=== PATIENT | female | born 1950 | race Caucasian/White ===

== ENCOUNTER 2019-05-01 18:46 | Emergency (ER) | payer MEDICARE, BC ==
[2019-05-01] MEDS ORDERED: Silver Nitrate Applicator Each TOP ONE (19:22)
[2019-05-01] MEDS ORDERED: Bacitracin Oint 1 GM U/D Packet TOP ONE (19:22)
[2019-05-01 19:23] VITALS: BP 161/84; PULSE 55
--- NOTE | 2019-05-01 19:26 | EDM.PDOC ---
ED HPI GENERAL MEDICAL PROBLEM - General Chief Complaint: Laceration Stated Complaint: LEFT FIRST FINGER LACERATION Time Seen by Provider: 05/01/19 19:20 Source of Information: Reports: Patient, RN Notes Reviewed History Limitations: Reports: No Limitations - History of Present Illness INITIAL COMMENTS - FREE TEXT/NARRATIVE: 69-year-old female presents emergency department today with a laceration to digit #2 on her left hand she injured herself while cutting vegetables she has a laceration on the distal tip no functional complaints right finger Pain Score (Numeric/FACES): 2 - Related Data Allergies Allergy/AdvReac Type Severity Reaction Status Date / Time No Known Allergies Allergy Verified 05/01/19 19:10 Home Meds: Home Meds Cholecalciferol (Vitamin D3) [Vitamin D3] 5,000 unit PO DAILY 12/04/12 [History] Metoprolol Succinate [Toprol XL] 75 mg PO DAILY 12/04/12 [History] Simvastatin 40 mg PO DAILY 12/04/12 [History] Albuterol [Proventil Neb Soln] 2.5 mg .XX QID PRN 05/01/19 [History] Losartan Potassium 1 tab PO DAILY 05/01/19 [History] Rizatriptan Benzoate [Rizatriptan] 1 tab PO BID PRN 05/01/19 [History] predniSONE 30 tab PO DAILY 05/01/19 [History] Past Medical History Cardiovascular History: Reports: High Cholesterol, Hypertension Respiratory History: Reports: Bronchitis, Recurrent Neurological History: Reports: Migraines Endocrine/Metabolic History: Reports: Obesity/BMI 30+ Social & Family History - Tobacco Use Smoking Status *Q: Never Smoker - Caffeine Use Caffeine Use: Reports: Coffee - Recreational Drug Use Recreational Drug Use: No ED ROS GENERAL - Review of Systems Review Of Systems: See Below Musculoskeletal: Reports: No Symptoms Skin: Reports: Wound Neurological: Reports: No Symptoms ED EXAM, SKIN/RASH Exam: See Below Text/Narrative:: Examination of the left hand the distal tip the top layer of the dermis has been shaved off or avulsed it is approximately 1 cm by half a centimeter radial pulses +2 sensation is intact Course - Vital Signs Last Recorded V/S: Last Vital Signs Temp 96.1 F L 05/01/19 19:15 Pulse 55 L 05/01/19 19:15 Resp 18 05/01/19 19:15 BP 161/84 H 05/01/19 19:15 Pulse Ox 96 05/01/19 19:15 - Orders/Labs/Meds Meds: Medications Discontinued Medications Generic Name Dose Route Start Last Admin Trade Name Gary PRN Reason Stop Dose Admin Bacitracin 1 dose 05/01/19 19:22 Bacitracin Oint 1 Gm TOP 05/01/19 19:23 ONETIME ONE Silver Nitrate 1 each 05/01/19 19:22 Silver Nitrate TOP 05/01/19 19:23 ONETIME ONE Departure - Departure Time of Disposition: 19:32 Disposition: Home, Self-Care 01 Condition: Good, Fair Clinical Impression: Laceration of left index finger Qualifiers: Encounter type: initial encounter Damage to nail status: without damage Foreign body presence: without foreign body Qualified Code(s): S61.211A - Laceration without foreign body of left index finger without damage to nail, initial encounter - Discharge Information Instructions: Laceration Care, Adult Referrals: Geoffrey Lagos MD [Primary Care Provider] - Forms: ED Department Discharge Additional Instructions: Try and keep the wound dry for 24 to 48 hours follow wound care instruction sheet follow-up with primary care as needed, Sepsis Event Note - Evaluation Sepsis Screening Result: No Definite Risk - Focused Exam Vital Signs: Vital Signs Temp Pulse Resp BP Pulse Ox 05/01/19 19:15 96.1 F L 55 L 18 161/84 H 96 Date Exam was Performed: 05/01/19 Time Exam was Performed: 19:32 - Assessment/Plan Plan: Assessment Acuity = acute Site and laterality = superficial laceration digit #2 left hand Etiology = secondary to trauma Manifestations = none Location of injury = Home Lab values = none Plan Tetanus is up-to-date bleeding was controlled with silver nitrate followed by bacitracin and a dressing discharged home follow-up primary care as needed
== END 2019-05-01 19:53 | disposition home or self-care (01) ==
LOC: JP.ED 18:46
DX: S61.211A Laceration without foreign body of left index finger without damage to nail, initial encounter (principal); E78.00 Pure hypercholesterolemia, unspecified; I10 Essential (primary) hypertension; E66.9 Obesity, unspecified; Z79.899 Other long term (current) drug therapy; Z68.42 Body mass index [BMI] 45.0-49.9, adult
CPT/HCPCS: 12001; 99282

== ENCOUNTER 2021-02-01 10:54 | Emergency (ER) | payer MEDICARE, BC ==
[2021-02-01 12:15] VITALS: BP 141/85; PULSE 63
--- NOTE | 2021-02-01 14:33 | EDM.PDOC ---
ED HPI GENERAL MEDICAL PROBLEM - General Chief Complaint: Cardiovascular Problem Stated Complaint: BP ISSUES Time Seen by Provider: 02/01/21 12:00 Source of Information: Reports: Patient History Limitations: Reports: No Limitations - History of Present Illness INITIAL COMMENTS - FREE TEXT/NARRATIVE: pt developed some rapid rhythms in the 114 range. She also had chest pain on t he left that lasted while her rate was up. She also checked her bp and it was very elevated. It was as high as 197. Onset: Gradual, Other (lasted for several hours. ) Duration: Hour(s): Location: Reports: Generalized Associated Symptoms: Reports: Weakness - Related Data Allergies Allergy/AdvReac Type Severity Reaction Status Date / Time No Known Allergies Allergy Verified 02/01/21 12:33 Home Meds: Home Meds Cholecalciferol (Vitamin D3) [Vitamin D3] 5,000 unit PO DAILY 12/04/12 [History] Metoprolol Succinate [Toprol XL] 75 mg PO DAILY 12/04/12 [History] Simvastatin 40 mg PO DAILY 12/04/12 [History] Losartan Potassium 1 tab PO DAILY 05/01/19 [History] Rizatriptan Benzoate [Rizatriptan] 1 tab PO BID PRN 05/01/19 [History] Past Medical History Cardiovascular History: Reports: High Cholesterol, Hypertension Respiratory History: Reports: Bronchitis, Recurrent Neurological History: Reports: Migraines Endocrine/Metabolic History: Reports: Obesity/BMI 30+ - Past Surgical History HEENT Surgical History: Reports: Other (See Below) Other HEENT Surgeries/Procedures: septal deviation repair. uvula surgically removed GI Surgical History: Reports: Cholecystectomy Female Surgical History: Reports: Hysterectomy Social & Family History - Tobacco Use Tobacco Use Status *Q: Former Tobacco User Years of Tobacco use: 20 Packs/Tins Daily: 0.5 Used Tobacco, but Quit: No - Caffeine Use Caffeine Use: Reports: Coffee Other Caffeine Use: 1/2 cup coffee in am - Alcohol Use Days Per Week of Alcohol Use: 3 Number of Drinks Per Day: 2 Total Drinks Per Week: 6 - Recreational Drug Use Recreational Drug Use: No ED ROS GENERAL - Review of Systems Review Of Systems: See Below Constitutional: Reports: No Symptoms HEENT: Reports: No Symptoms Respiratory: Reports: No Symptoms Cardiovascular: Reports: Palpitations, Other (pt had some left sided chest pain. ) Endocrine: Reports: No Symptoms GI/Abdominal: Reports: No Symptoms : Reports: No Symptoms Musculoskeletal: Reports: No Symptoms Skin: Reports: No Symptoms ED EXAM, GENERAL - Physical Exam Exam: See Below Free Text/Narrative:: pt arrived with a history of elevated bp, left sided chest pain, not severe. and feeling like her heart is racing. Exam Limited By: No Limitations General Appearance: Alert, No Apparent Distress, Anxious, Other (pupils are equal and reactive. ) Ears: Normal TMs Nose: Normal Inspection Throat/Mouth: Normal Inspection Head: Atraumatic Neck: Normal Inspection Respiratory/Chest: No Respiratory Distress Cardiovascular: Regular Rate, Rhythm GI/Abdominal: Soft, Non-Tender (Female) Exam: Deferred Rectal (Female) Exam: Deferred Back Exam: Normal Inspection Extremities: Normal Inspection Neurological: Alert, Oriented, Normal Cognition Course - Vital Signs Last Recorded V/S: Last Vital Signs Temp 36.4 C 02/01/21 12:39 Pulse 63 02/01/21 12:39 Resp 14 02/01/21 12:39 BP 141/85 H 02/01/21 12:39 Pulse Ox 97 02/01/21 12:39 - Orders/Labs/Meds Orders: Active Orders 24 hr Category Date Time Status EKG 12 Lead [EK] Routine Ther 02/01/21 13:25 Ordered Labs: Laboratory Tests 02/01/21 02/01/21 02/01/21 Range/Units 13:30 13:30 13:30 WBC 7.1 (4.5-11.0) K/uL RBC 4.74 (3.30-5.50) M/uL Hgb 14.8 (12.0-15.0) g/dL Hct 44.7 (36.0-48.0) % MCV 94 (80-98) fL MCH 31 (27-31) pg MCHC 33 (32-36) % Plt Count 265 (150-400) K/uL Neut % (Auto) 67.2 H (36-66) % Lymph % (Auto) 24.3 (24-44) % [place] % (Auto) 6.5 H (2-6) % Eos % (Auto) 1.7 L (2-4) % Baso % (Auto) 0.3 (0-1) % Sodium 140 (140-148) mmol/L Potassium 4.5 (3.6-5.2) mmol/L Chloride 104 (100-108) mmol/L Carbon Dioxide 29 (21-32) mmol/L Anion Gap 7.5 (5.0-14.0) mmol/L BUN 14 (7-18) mg/dL Creatinine 0.9 (0.6-1.0) mg/dL Est Cr Clr Drug Dosing 49.43 mL/min Estimated GFR (MDRD) > 60 (>60) Glucose 100 (74-106) mg/dL Calcium 8.7 (8.5-10.1) mg/dL Total Bilirubin 1.4 H (0.2-1.0) mg/dL AST 18 (15-37) U/L ALT 30 (12-78) U/L Alkaline Phosphatase 65 (46-116) U/L Troponin I High Sens 6.8 (<=60.3) pg/mL Total Protein 6.8 (6.4-8.2) g/dL Albumin 3.6 (3.4-5.0) g/dL Globulin 3.2 (2.3-3.5) g/dL Albumin/Globulin Ratio 1.1 L (1.2-2.2) - Re-Assessments/Exams Free Text/Narrative Re-Assessment/Exam: 02/01/21 14:39 as the pt waited her bp came down nicely. Her ekg was normal lab work looked good. She was reassured. Departure - Departure Time of Disposition: 14:31 Disposition: Home, Self-Care 01 Condition: Fair Clinical Impression: Hypertension Referrals: PCP,None [Primary Care Provider] - Forms: ED Department Discharge Care Plan Goals: push fluids, change metoprol to 75 mg tab 1/2 tab qam and 1/2 tab qpm. See regular provider in the next week. Sepsis Event Note (ED) - Evaluation Sepsis Screening Result: No Definite Risk - Focused Exam Vital Signs: Vital Signs Temp Pulse Resp BP Pulse Ox 02/01/21 12:39 36.4 C 63 14 141/85 H 97 02/01/21 12:14 36.4 C 63 14 141/85 H 97 02/01/21 11:33 158/80 H - My Orders Last 24 Hours: My Active Orders 02/01/21 13:25 EKG 12 Lead [EK] Routine - Assessment/Plan Last 24 Hours: My Active Orders 02/01/21 13:25 EKG 12 Lead [EK] Routine
== END 2021-02-01 14:47 | disposition home or self-care (01) ==
LOC: JP.ED 10:54
DX: I11.0 Hypertensive heart disease with heart failure (principal); E78.00 Pure hypercholesterolemia, unspecified; E66.9 Obesity, unspecified; Z68.20 Body mass index [BMI] 20.0-20.9, adult; Z79.899 Other long term (current) drug therapy; Z87.891 Personal history of nicotine dependence
CPT/HCPCS: 36415; 80053; 84484; 85025; 93005; 99285-25

== ENCOUNTER → 2021-08-14 | Day surgery (SDC) | payer MEDICARE, BC ==
[~2021-08-14] MED LIST: Lactated Ringers 1,000 ML IV SCH; Midazolam 1 MG/ML 2 ML SDV ONE; Propofol 200 MG/20 ML SDV ONE; fentaNYL 100 MCG/2 ML SDV ONE
[2021-08-14 11:26] VITALS: PULSE 53
[2021-08-14 12:03] VITALS: BP 149/74
== END ==
LOC: JP.SDS 09:31
PROVIDERS: ATTEND Family Medicine
DX: Z12.11 Encounter for screening for malignant neoplasm of colon (principal); I10 Essential (primary) hypertension; E78.5 Hyperlipidemia, unspecified; K21.9 Gastro-esophageal reflux disease without esophagitis; G47.33 Obstructive sleep apnea (adult) (pediatric); E66.9 Obesity, unspecified; Z91.048 Other nonmedicinal substance allergy status; Z68.41 Body mass index [BMI] 40.0-44.9, adult; Z90.711 Acquired absence of uterus with remaining cervical stump; Z98.890 Other specified postprocedural states; Z86.010 Personal history of colon polyps; Z80.0 Family history of malignant neoplasm of digestive organs; Z87.891 Personal history of nicotine dependence
CPT/HCPCS: J2250; J2704; J3010; J7120

== ENCOUNTER 2022-05-25 19:52 | Emergency (ER) | payer MEDICARE, BC ==
[2022-05-25] MEDS: Diltiazem 25 MG/5 ML SDV IVPUSH ONE (20:44)
[2022-05-25] MEDS: Sodium Chloride 0.9% 10 ML Syringe FLUSH PRN (20:45)
[2022-05-25] MEDS: Metoprolol Succinate 50 MG Tab.ER PO ONE (21:56)
[2022-05-25 21:57] VITALS: BP 129/71; PULSE 89
[2022-05-25] MEDS: Rivaroxaban 10 MG Tab PO ONE (21:57)
== END 2022-05-25 22:56 | disposition home or self-care (01) ==
LOC: JP.ED 19:52
DX: I48.92 Unspecified atrial flutter (principal); I10 Essential (primary) hypertension; E78.5 Hyperlipidemia, unspecified; E66.9 Obesity, unspecified; E78.00 Pure hypercholesterolemia, unspecified; Z87.891 Personal history of nicotine dependence; Z79.899 Other long term (current) drug therapy; Z79.01 Long term (current) use of anticoagulants; Z68.41 Body mass index [BMI] 40.0-44.9, adult
CPT/HCPCS: 36415; 71045; 71045-26; 80048; 83735; 85025; 85379; 85610; 85730; 93005; 93010; 96374; 99284; 99285-25; A9270-GY; J3490

== ENCOUNTER 2022-06-20 19:59 | Inpatient (IN) | payer MEDICARE, BC ==
[2022-06-20] MEDS ORDERED: Diltiazem 25 MG/5 ML SDV IVPUSH ONE (20:03)
[2022-06-20] MEDS ORDERED: Sodium Chloride 0.9% 10 ML Syringe FLUSH PRN (20:03)
[2022-06-20] MEDS ORDERED: Ibutilide 1 MG/10 ML Vial IVPUSH ONE ×2 (20:06→20:56)
[2022-06-20] MEDS ORDERED: Sodium Chloride 0.9% 1,000 ML IV SCH (20:15)
[2022-06-20 20:42] LABS: ESTIMATED GFR 60 mL/min (>60); TROPONIN I HIGH SENSITIVITY 7.8 pg/mL (<=60.3)
[2022-06-20] MEDS ORDERED: Diltiazem 100 MG in Sodium Chloride 0.9% 100 ML IV SCH (22:30)
[2022-06-20] MEDS ORDERED: Apixaban 5 MG Tab PO ONE (22:52)
[2022-06-20] MEDS ORDERED: Diltiazem IR 30 MG Tab PO SCH (23:00)
[2022-06-21] MEDS ORDERED: Acetaminophen 325 MG Tab PO PRN (00:55)
[2022-06-21] MEDS ORDERED: Potassium Chloride 20 MEQ Tab.ER PO ONE (00:55)
[2022-06-21] MEDS ORDERED: Morphine 2 MG/ML SYRINGE IVPUSH PRN (00:55)
[2022-06-21] MEDS ORDERED: oxyCODONE 5 MG Tab PO PRN (00:55)
[2022-06-21] MEDS ORDERED: Ondansetron 4 MG Tab.DIS PO PRN (00:55)
[2022-06-21] MEDS ORDERED: Sodium Chloride 0.9% 1,000 ML IV SCH (00:55)
[2022-06-21] MEDS ORDERED: Apixaban 5 MG Tab ONE (01:38)
[2022-06-21] MEDS ORDERED: Apixaban 2.5 MG Tab ONE (01:46)
[2022-06-21] MEDS: Diltiazem IR 30 MG Tab PO SCH ×2 (01:50→09:07)
[2022-06-21] MEDS ORDERED: Non-Formulary Medication 1 Each (Simvastatin [Simvastatin] 20 MG Tablet) PO SCH (09:00)
[2022-06-21] MEDS ORDERED: Magnesium Oxide 400 MG Tab PO SCH (09:00)
[2022-06-21] MEDS: Apixaban 5 MG Tab PO SCH ×3 (09:07→22:09)
[2022-06-21] MEDS: Losartan 50 MG Tab PO SCH ×2 (09:07→13:38)
[2022-06-21] MEDS: Cholecalciferol (Vitamin D3) 25 MCG Tab PO SCH ×2 (09:08→13:39)
[2022-06-21] MEDS: Metoprolol Succinate 25 MG Tab.ER PO SCH ×2 (09:08→13:38)
[2022-06-21] MEDS: atorvaSTATin 10 MG Tab PO SCH ×2 (09:08→13:39)
[2022-06-21] MEDS ORDERED: Magnesium Sulfate/Water 2 GM in Premix Bag 1 BAG IV SCH (10:00)
[2022-06-21] MEDS: Sotalol 80 MG Tab PO SCH ×2 (13:46→22:11)
[2022-06-22] MEDS ORDERED: Metoprolol Succinate 25 MG Tab.ER PO SCH (09:00)
[2022-06-22] MEDS: Sotalol 80 MG Tab PO SCH ×2 (09:23→21:55)
[2022-06-22] MEDS: Apixaban 5 MG Tab PO SCH ×3 (09:27→21:55)
[2022-06-22] MEDS: Losartan 50 MG Tab PO SCH (09:30)
[2022-06-22] MEDS: atorvaSTATin 10 MG Tab PO SCH (09:30)
[2022-06-22] MEDS: Cholecalciferol (Vitamin D3) 25 MCG Tab PO SCH (09:31)
[2022-06-23] MEDS: Losartan 50 MG Tab PO SCH (09:01)
[2022-06-23] MEDS: Sotalol 80 MG Tab PO SCH (09:01)
[2022-06-23] MEDS: Cholecalciferol (Vitamin D3) 25 MCG Tab PO SCH (09:02)
[2022-06-23] MEDS: atorvaSTATin 10 MG Tab PO SCH (09:02)
[2022-06-23] MEDS: Apixaban 5 MG Tab PO SCH ×2 (09:04→11:14)
[2022-06-23 12:23] VITALS: BP 134/79; PULSE 58
== END 2022-06-23 14:50 | disposition home or self-care (01) | DRG 310 ==
LOC: JP.ED 19:59 → JP.MS 23:24 → OBSVTOIN 06-21 12:00
PROVIDERS: ADMIT Hospitalist; ATTEND Hospitalist
DX: I48.0 Paroxysmal atrial fibrillation (principal); E87.6 Hypokalemia; E78.00 Pure hypercholesterolemia, unspecified; I10 Essential (primary) hypertension; E66.9 Obesity, unspecified; M19.90 Unspecified osteoarthritis, unspecified site; Z20.822 Contact with and (suspected) exposure to COVID-19; I48.92 Unspecified atrial flutter; G47.33 Obstructive sleep apnea (adult) (pediatric); G43.909 Migraine, unspecified, not intractable, without status migrainosus; Z98.890 Other specified postprocedural states; Z90.49 Acquired absence of other specified parts of digestive tract; Z90.710 Acquired absence of both cervix and uterus; Z79.01 Long term (current) use of anticoagulants; Z86.010 Personal history of colon polyps; Z90.721 Acquired absence of ovaries, unilateral; Z68.30 Body mass index [BMI] 30.0-30.9, adult; Z88.8 Allergy status to other drugs, medicaments and biological substances; Z79.899 Other long term (current) drug therapy; H54.7 Unspecified visual loss; I44.0 Atrioventricular block, first degree
CPT/HCPCS: 36415; 80048; 80053; 81001; 83735; 84443; 84484; 85025; 93005; 93010; 96361; 96374; 96376; 99222; 99232; 99238; 99285; 99285-25; A9270-GY; G0378; J1742; J3490; J7030; U0002

== ENCOUNTER 2022-07-02 11:45 | Emergency (ER) | payer MEDICARE, BC ==
[2022-07-02 11:54] VITALS: BP 164/95; PULSE 83
== END 2022-07-02 12:33 | disposition home or self-care (01) ==
LOC: JP.ED 11:45
DX: I48.0 Paroxysmal atrial fibrillation (principal); I10 Essential (primary) hypertension; E78.00 Pure hypercholesterolemia, unspecified; M19.90 Unspecified osteoarthritis, unspecified site; E66.9 Obesity, unspecified; Z68.41 Body mass index [BMI] 40.0-44.9, adult; Z79.01 Long term (current) use of anticoagulants; Z91.048 Other nonmedicinal substance allergy status; Z79.899 Other long term (current) drug therapy
CPT/HCPCS: 99284

== ENCOUNTER 2022-07-19 04:11 | Emergency (ER) | payer MEDICARE, BC ==
[2022-07-19] MEDS ORDERED: Sotalol 80 MG Tab PO ONE (04:32)
[2022-07-19 06:21] VITALS: BP 140/85; PULSE 84
== END 2022-07-19 05:55 | disposition home or self-care (01) ==
LOC: JP.ED 04:11
DX: I48.3 Typical atrial flutter (principal); G47.33 Obstructive sleep apnea (adult) (pediatric); I48.91 Unspecified atrial fibrillation; E78.00 Pure hypercholesterolemia, unspecified; I10 Essential (primary) hypertension; E66.9 Obesity, unspecified; Z91.048 Other nonmedicinal substance allergy status; Z79.01 Long term (current) use of anticoagulants; Z79.899 Other long term (current) drug therapy; Z68.39 Body mass index [BMI] 39.0-39.9, adult
CPT/HCPCS: 93005; 99284; A9270

== ENCOUNTER 2022-09-27 15:11 | Emergency (ER) | payer MEDICARE, BC ==
[2022-09-27 16:12] VITALS: PULSE 52
[2022-09-27] MEDS ORDERED: Sodium Chloride 0.9% 10 ML Syringe FLUSH PRN (16:15)
[2022-09-27] MEDS ORDERED: Sodium Chloride 0.9% 1,000 ML IV ONE (16:15)
[2022-09-27] MEDS ORDERED: diphenhydrAMINE 50 MG/ML SDV IVPUSH ONE (16:16)
[2022-09-27] MEDS ORDERED: Metoclopramide 10 MG/2 ML SDV IVPUSH ONE (16:16)
[2022-09-27] MEDS ORDERED: Ketorolac 15 MG/ML SDV IVPUSH ONE (16:16)
[2022-09-27 16:26] LABS: BASOPHILS ABSOLUTE AUTO 0.04 K/uL (0.00-0.10); BASOPHILS PERCENT AUTO 0.6 % (0.1-1.3); EOSINOPHILS ABSOLUTE AUTO 0.12 K/uL (0.00-0.40); EOSINOPHILS PERCENT AUTO 1.7 % (0.0-5.4); HEMATOCRIT 38.2 % (34.3-46.0); HEMOGLOBIN 12.3 g/dL (11.2-15.5); IMMATURE GRAN PERCENT AUTO 0.3 % (0.0-0.7); LYMPHOCYTES ABSOLUTE AUTO 2.06 K/uL (0.8-3.3); LYMPHOCYTES PERCENT AUTO 28.5 % (11.4-47.7); MEAN CORPUSCULAR HEMOGLOBIN 30.8 pg (31.6-35.5); MEAN CORPUSCULAR HGB CONC 32.2 g/dL (31.6-35.5); MEAN CORPUSCULAR VOLUME 95.5 fL (81.4-99.0); MONOCYTES ABSOLUTE AUTO 0.53 K/uL (0.20-0.90); MONOCYTES PERCENT AUTO 7.3 % (3.3-12.6); NEUTROPHILS ABSOLUTE AUTO 4.46 K/uL (1.0-7.6); NEUTROPHILS PERCENT AUTO 61.6 % (40.0-78.1); PLATELET COUNT,PLT 190 K/uL (130-375); WHITE BLOOD CELL COUNT,WBC 7.2 K/uL (3.2-11.0)
[2022-09-27 16:27] LABS: IMMATURE GRAN ABSOLUTE AUTO 0.02 K/uL (0.00-0.23)
[2022-09-27 16:41] LABS: ANION GAP 8.8 mmol/L (5.0-14.0); BLOOD UREA NITROGEN,BUN 17 mg/dL (7-18); CALCIUM 8.7 mg/dL (8.5-10.1); CARBON DIOXIDE,CO2 30 mmol/L (21-32); CHLORIDE,CL 109 mmol/L (100-108); CREATININE 0.9 mg/dL (0.6-1.0); ESTIMATED GFR 68 mL/min (>60); GLUCOSE RANDOM 90 mg/dL (74-106); POTASSIUM,K 4.8 mmol/L (3.6-5.2); SODIUM,NA 143 mmol/L (140-148)
[2022-09-27 17:12] VITALS: BP 141/77
== END 2022-09-27 17:56 | disposition home or self-care (01) ==
LOC: JP.ED 15:11
DX: G43.909 Migraine, unspecified, not intractable, without status migrainosus (principal); I48.91 Unspecified atrial fibrillation; E78.00 Pure hypercholesterolemia, unspecified; I10 Essential (primary) hypertension; E66.9 Obesity, unspecified; Z79.01 Long term (current) use of anticoagulants; Z79.899 Other long term (current) drug therapy; Z91.048 Other nonmedicinal substance allergy status
CPT/HCPCS: 36415; 80048; 85025; 96361; 96374; 96375; 99283; 99283-25; J1200; J1885; J2765; J3490; J7030

== ENCOUNTER 2023-10-14 01:08 | Emergency (ER) | payer MEDICARE, BC ==
[2023-10-14] MEDS: Ketorolac 30 MG/ML SDV IM ONE (01:56)
[2023-10-14 04:43] VITALS: BP 164/64; PULSE 55
== END 2023-10-14 03:55 | disposition home or self-care (01) ==
LOC: JP.ED 01:08
DX: R10.9 Unspecified abdominal pain (principal); I10 Essential (primary) hypertension; I48.91 Unspecified atrial fibrillation; E78.00 Pure hypercholesterolemia, unspecified; E66.9 Obesity, unspecified; Z79.899 Other long term (current) drug therapy; Z79.01 Long term (current) use of anticoagulants; Z91.048 Other nonmedicinal substance allergy status; Z68.36 Body mass index [BMI] 36.0-36.9, adult
CPT/HCPCS: 74176; 96372; 99284; J1885

== ENCOUNTER 2023-10-15 07:25 | Emergency (ER) | payer MEDICARE, BC ==
[2023-10-15] MEDS ORDERED: Naloxone 0.4 MG/ML SDV IVPUSH PRN (07:33)
[2023-10-15 07:41] LABS: BASOPHILS ABSOLUTE AUTO 0.04 K/uL (0.00-0.10); BASOPHILS PERCENT AUTO 0.5 % (0.1-1.3); EOSINOPHILS ABSOLUTE AUTO 0.17 K/uL (0.00-0.40); EOSINOPHILS PERCENT AUTO 2.2 % (0.0-5.4); HEMATOCRIT 35.3 % (34.3-46.0); HEMOGLOBIN 12.1 g/dL (11.2-15.5); IMMATURE GRAN ABSOLUTE AUTO 0.03 K/uL (0.00-0.23); IMMATURE GRAN PERCENT AUTO 0.4 % (0.0-0.7); LYMPHOCYTES PERCENT AUTO 31.4 % (11.4-47.7); MEAN CORPUSCULAR HEMOGLOBIN 31.5 pg (31.6-35.5); MEAN CORPUSCULAR HGB CONC 34.3 g/dL (31.6-35.5); MEAN CORPUSCULAR VOLUME 91.9 fL (81.4-99.0); MONOCYTES ABSOLUTE AUTO 0.63 K/uL (0.20-0.90); MONOCYTES PERCENT AUTO 8.2 % (3.3-12.6); NEUTROPHILS ABSOLUTE AUTO 4.37 K/uL (1.0-7.6); NEUTROPHILS PERCENT AUTO 57.3 % (40.0-78.1); PLATELET COUNT,PLT 218 K/uL (130-375); RED BLOOD CELL COUNT 3.84 M/uL (3.77-5.24); WHITE BLOOD CELL COUNT,WBC 7.6 K/uL (3.2-11.0)
[2023-10-15] MEDS: Sodium Chloride 0.9% 1,000 ML IV SCH (07:51)
[2023-10-15] MEDS: Ondansetron 4 MG/2 ML SDV IVPUSH ONE (07:53)
[2023-10-15] MEDS: HYDROmorphone 0.5 MG/0.5 ML Syringe IVPUSH ONE ×2 (07:53→08:24)
[2023-10-15 07:56] LABS: ANION GAP 8.5 mmol/L (5.0-14.0); CALCIUM 8.5 mg/dL (8.5-10.1); CREATININE 1.2 mg/dL (0.6-1.0); EST CRCL DRUG DOSING (CG) 35.05 mL/min; POTASSIUM,K 4.5 mmol/L (3.6-5.2)
[2023-10-15 08:36] VITALS: BP 152/84; PULSE 60
[2023-10-15 08:39] LABS: BILIRUBIN,URINE NEGATIVE (NEGATIVE); COLOR,URINE YELLOW (YELLOW); GLUCOSE,URINE NEGATIVE (NEGATIVE); KETONES,URINE NEGATIVE (NEGATIVE); LEUKOCYTE ESTERASE,URINE SMALL (NEGATIVE); NITRITE,URINE NEGATIVE (NEGATIVE); OCCULT BLOOD,URINE TRACE-INTACT (NEGATIVE); PROTEIN,URINE NEGATIVE (NEGATIVE); UROBILINOGEN,URINE 0.2 EU/dL (0.2-1.0)
[2023-10-15 08:44] LABS: AMORPHOUS SEDIMENT,URINE NOT SEEN; APPEARANCE,URINE SLIGHTLY CLOUDY (CLEAR); BACTERIA,URINE FEW; EPITHELIAL CELLS,URINE RARE; MUCUS,URINE NOT SEEN; RBC,URINE 0-5 (0-5)
[2023-10-15] MEDS: oxyCODONE 5 MG Tab PO ONE (11:53)
== END 2023-10-15 13:52 | disposition home or self-care (01) ==
LOC: JP.ED 07:25
DX: N36.8 Other specified disorders of urethra (principal); I10 Essential (primary) hypertension; E78.00 Pure hypercholesterolemia, unspecified; E66.9 Obesity, unspecified; Z79.899 Other long term (current) drug therapy; Z91.048 Other nonmedicinal substance allergy status; Z90.49 Acquired absence of other specified parts of digestive tract; Z68.36 Body mass index [BMI] 36.0-36.9, adult
CPT/HCPCS: 36415; 76705; 80048; 81001; 85025; 96361; 96374; 96375; 96376; 99284; A9270; J1170; J2405; J7030

== ENCOUNTER 2023-12-25 11:23 | Emergency (ER) | payer MEDICARE, BC ==
[2023-12-25 12:04] VITALS: BP 162/55; PULSE 69
[2023-12-25] MEDS ORDERED: Naloxone 0.4 MG/ML SDV IVPUSH PRN (12:21)
[2023-12-25 12:29] LABS: BASOPHILS ABSOLUTE AUTO 0.03 K/uL (0.00-0.10); BASOPHILS PERCENT AUTO 0.4 % (0.1-1.3); EOSINOPHILS ABSOLUTE AUTO 0.21 K/uL (0.00-0.40); EOSINOPHILS PERCENT AUTO 2.7 % (0.0-5.4); HEMATOCRIT 38.9 % (34.3-46.0); HEMOGLOBIN 13.1 g/dL (11.2-15.5); IMMATURE GRAN ABSOLUTE AUTO 0.03 K/uL (0.00-0.23); IMMATURE GRAN PERCENT AUTO 0.4 % (0.0-0.7); LYMPHOCYTES ABSOLUTE AUTO 1.37 K/uL (0.8-3.3); LYMPHOCYTES PERCENT AUTO 17.9 % (11.4-47.7); MEAN CORPUSCULAR HGB CONC 33.7 g/dL (31.6-35.5); MEAN CORPUSCULAR VOLUME 94.9 fL (81.4-99.0); MONOCYTES ABSOLUTE AUTO 0.55 K/uL (0.20-0.90); MONOCYTES PERCENT AUTO 7.2 % (3.3-12.6); NEUTROPHILS ABSOLUTE AUTO 5.47 K/uL (1.0-7.6); NEUTROPHILS PERCENT AUTO 71.4 % (40.0-78.1); PLATELET COUNT,PLT 220 K/uL (130-375); WHITE BLOOD CELL COUNT,WBC 7.7 K/uL (3.2-11.0)
[2023-12-25 12:34] LABS: APPEARANCE,URINE SLIGHTLY CLOUDY (CLEAR); BILIRUBIN,URINE NEGATIVE (NEGATIVE); COLOR,URINE YELLOW (YELLOW); GLUCOSE,URINE NEGATIVE (NEGATIVE); KETONES,URINE NEGATIVE (NEGATIVE); LEUKOCYTE ESTERASE,URINE SMALL (NEGATIVE); NITRITE,URINE NEGATIVE (NEGATIVE); OCCULT BLOOD,URINE SMALL (NEGATIVE); PH,URINE 5.5 (5.0-8.0); PROTEIN,URINE NEGATIVE (NEGATIVE); UROBILINOGEN,URINE 0.2 EU/dL (0.2-1.0)
[2023-12-25] MEDS: HYDROmorphone 0.5 MG/0.5 ML Syringe IVPUSH PRN (12:39)
[2023-12-25 12:40] LABS: AMORPHOUS SEDIMENT,URINE RARE; BACTERIA,URINE FEW; EPITHELIAL CELLS,URINE FEW; MUCUS,URINE NOT SEEN; RBC,URINE 0-5 (0-5); WBC,URINE >100 (0-5)
[2023-12-25] MEDS: Sodium Chloride 0.9% 500 ML IV ONE (12:42)
[2023-12-25 12:51] LABS: PROTHROMBIN TIME 10.2 sec (9.2-10.6)
[2023-12-25 12:54] LABS: A/G RATIO 1.1 (1.2-2.2); ALANINE AMINOTRANSFERASE,ALT 28 U/L (12-78); ALBUMIN 3.8 g/dL (3.4-5.0); ALKALINE PHOSPHATASE 65 U/L (46-116); ANION GAP 8.2 mmol/L (5.0-14.0); ASPARTATE AMNIOTRANSFERASE,AST 15 U/L (15-37); BLOOD UREA NITROGEN,BUN 28 mg/dL (7-18); CALCIUM 9.3 mg/dL (8.5-10.1); CARBON DIOXIDE,CO2 28 mmol/L (21-32); CHLORIDE,CL 106 mmol/L (100-108); CREATININE 1.3 mg/dL (0.6-1.0); EST CRCL DRUG DOSING (CG) 33.78 mL/min; ESTIMATED GFR 44 mL/min (>60); GLUCOSE RANDOM 105 mg/dL (74-106); POTASSIUM,K 4.2 mmol/L (3.6-5.2); PROTEIN TOTAL,TP 7.4 g/dL (6.4-8.2); SODIUM,NA 142 mmol/L (140-148)
[2023-12-25] MEDS: Iopamidol 612 MG/ML 100 ML Bottle IV SCH (13:57)
[2023-12-25] MEDS: Sodium Chloride 0.9% 10 ML Syringe FLUSH ONE (13:57)
[2023-12-25] MEDS: Sodium Chloride 0.9% 60 ML IV SCH (13:57)
== END 2023-12-25 16:00 | disposition critical access hospital (66) ==
LOC: JP.ED 11:23
DX: N13.5 Crossing vessel and stricture of ureter without hydronephrosis (principal); I48.91 Unspecified atrial fibrillation; E78.00 Pure hypercholesterolemia, unspecified; I10 Essential (primary) hypertension; E66.9 Obesity, unspecified; Z68.36 Body mass index [BMI] 36.0-36.9, adult; Z90.49 Acquired absence of other specified parts of digestive tract; Z79.899 Other long term (current) drug therapy; Z91.048 Other nonmedicinal substance allergy status
CPT/HCPCS: 36415; 74178; 80053; 81001; 83605; 85025; 85610; 96361; 96374; 96376; 99285; J1171; J3490; J7030; Q9967

== ENCOUNTER 2024-06-06 13:03 | Emergency (ER) | payer MEDICARE, BC ==
[2024-06-06 13:19] VITALS: BP 156/87; PULSE 94
[2024-06-06 14:10] LABS: APPEARANCE,URINE CLOUDY (CLEAR); BILIRUBIN,URINE NEGATIVE (NEGATIVE); COLOR,URINE YELLOW (YELLOW); GLUCOSE,URINE NEGATIVE (NEGATIVE); KETONES,URINE NEGATIVE (NEGATIVE); LEUKOCYTE ESTERASE,URINE MODERATE (NEGATIVE); NITRITE,URINE POSITIVE (NEGATIVE); OCCULT BLOOD,URINE TRACE-LYSED (NEGATIVE); PROTEIN,URINE NEGATIVE (NEGATIVE); UROBILINOGEN,URINE 0.2 EU/dL (0.2-1.0)
[2024-06-06 14:16] LABS: BASOPHILS ABSOLUTE AUTO 0.04 K/uL (0.00-0.10); BASOPHILS PERCENT AUTO 0.5 % (0.1-1.3); EOSINOPHILS ABSOLUTE AUTO 0.09 K/uL (0.00-0.40); EOSINOPHILS PERCENT AUTO 1.1 % (0.0-5.4); HEMATOCRIT 38.2 % (34.3-46.0); HEMOGLOBIN 12.7 g/dL (11.2-15.5); IMMATURE GRAN ABSOLUTE AUTO 0.02 K/uL (0.00-0.23); IMMATURE GRAN PERCENT AUTO 0.3 % (0.0-0.7); LYMPHOCYTES ABSOLUTE AUTO 1.39 K/uL (0.8-3.3); LYMPHOCYTES PERCENT AUTO 17.6 % (11.4-47.7); MEAN CORPUSCULAR HEMOGLOBIN 31.6 pg (31.6-35.5); MEAN CORPUSCULAR HGB CONC 33.2 g/dL (31.6-35.5); MONOCYTES ABSOLUTE AUTO 0.53 K/uL (0.20-0.90); MONOCYTES PERCENT AUTO 6.7 % (3.3-12.6); NEUTROPHILS ABSOLUTE AUTO 5.81 K/uL (1.0-7.6); NEUTROPHILS PERCENT AUTO 73.8 % (40.0-78.1); PLATELET COUNT,PLT 227 K/uL (130-375); RED BLOOD CELL COUNT 4.02 M/uL (3.77-5.24); WHITE BLOOD CELL COUNT,WBC 7.9 K/uL (3.2-11.0)
[2024-06-06 14:17] LABS: AMORPHOUS SEDIMENT,URINE NOT SEEN; BACTERIA,URINE MANY; EPITHELIAL CELLS,URINE FEW; MUCUS,URINE NOT SEEN; RBC,URINE 0-5 (0-5); WBC,URINE SEMI-PACKED (0-5)
[2024-06-06 14:31] LABS: CREATININE 0.9 mg/dL (0.6-1.0); EST CRCL DRUG DOSING (CG) 48.07 mL/min; POTASSIUM,K 4.1 mmol/L (3.6-5.2)
[2024-06-06 14:37] LABS: ANION GAP 15.1 mmol/L (5.0-14.0)
== END 2024-06-06 15:00 | disposition home or self-care (01) ==
LOC: JP.ED 13:03
DX: N12 Tubulo-interstitial nephritis, not specified as acute or chronic (principal); Z93.6 Other artificial openings of urinary tract status; I10 Essential (primary) hypertension; E78.00 Pure hypercholesterolemia, unspecified; E66.9 Obesity, unspecified; Z68.37 Body mass index [BMI] 37.0-37.9, adult; Z90.49 Acquired absence of other specified parts of digestive tract; Z79.899 Other long term (current) drug therapy; Z91.048 Other nonmedicinal substance allergy status
CPT/HCPCS: 36415; 80048; 81001; 85025; 87086; 87088; 87186; 99284

== ENCOUNTER 2024-06-27 11:56 | Emergency (ER) | payer MEDICARE, BC ==
[2024-06-27 12:55] VITALS: BP 174/68; PULSE 86
[2024-06-27 13:04] LABS: APPEARANCE,URINE CLEAR (CLEAR); BILIRUBIN,URINE NEGATIVE (NEGATIVE); COLOR,URINE YELLOW (YELLOW); GLUCOSE,URINE NEGATIVE (NEGATIVE); KETONES,URINE NEGATIVE (NEGATIVE); LEUKOCYTE ESTERASE,URINE SMALL (NEGATIVE); NITRITE,URINE NEGATIVE (NEGATIVE); OCCULT BLOOD,URINE SMALL (NEGATIVE); PROTEIN,URINE TRACE mg/dL (NEGATIVE); UROBILINOGEN,URINE 0.2 EU/dL (0.2-1.0)
[2024-06-27 13:11] LABS: BACTERIA,URINE RARE; EPITHELIAL CELLS,URINE NOT SEEN; RBC,URINE NOT SEEN (0-5)
== END 2024-06-27 14:16 | disposition home or self-care (01) ==
LOC: JP.ED 11:56
DX: N39.0 Urinary tract infection, site not specified (principal); I10 Essential (primary) hypertension; E78.00 Pure hypercholesterolemia, unspecified; E66.9 Obesity, unspecified; Z68.37 Body mass index [BMI] 37.0-37.9, adult; Z90.49 Acquired absence of other specified parts of digestive tract; Z87.891 Personal history of nicotine dependence; Z91.048 Other nonmedicinal substance allergy status
CPT/HCPCS: 81001; 99284

== ENCOUNTER 2024-08-17 22:13 | Emergency (ER) | payer MEDICARE, BC ==
[2024-08-17 23:42] VITALS: BP 129/74; PULSE 102
== END 2024-08-17 23:40 | disposition home or self-care (01) ==
LOC: JP.ED 22:13
DX: J40 Bronchitis, not specified as acute or chronic (principal); I48.91 Unspecified atrial fibrillation; E78.00 Pure hypercholesterolemia, unspecified; I10 Essential (primary) hypertension; Z90.49 Acquired absence of other specified parts of digestive tract; Z87.891 Personal history of nicotine dependence; Z91.048 Other nonmedicinal substance allergy status; Z79.01 Long term (current) use of anticoagulants; Z79.899 Other long term (current) drug therapy
CPT/HCPCS: 99282; 99283

== ENCOUNTER 2024-09-07 11:20 | Emergency (ER) | payer MEDICARE, BC ==
[2024-09-07 12:14] VITALS: PULSE 92
[2024-09-07 12:40] LABS: BASOPHILS ABSOLUTE AUTO 0.03 K/uL (0.00-0.10); BASOPHILS PERCENT AUTO 0.3 % (0.1-1.3); EOSINOPHILS ABSOLUTE AUTO 0.02 K/uL (0.00-0.40); EOSINOPHILS PERCENT AUTO 0.2 % (0.0-5.4); IMMATURE GRAN ABSOLUTE AUTO 0.44 K/uL (0.00-0.23); IMMATURE GRAN PERCENT AUTO 4.0 % (0.0-0.7); LYMPHOCYTES ABSOLUTE AUTO 0.97 K/uL (0.8-3.3); LYMPHOCYTES PERCENT AUTO 8.8 % (11.4-47.7); MONOCYTES ABSOLUTE AUTO 0.67 K/uL (0.20-0.90); MONOCYTES PERCENT AUTO 6.1 % (3.3-12.6); NEUTROPHILS ABSOLUTE AUTO 8.91 K/uL (1.0-7.6); NEUTROPHILS PERCENT AUTO 80.6 % (40.0-78.1); PLATELET COUNT,PLT 333 K/uL (130-375); RED BLOOD CELL COUNT 3.89 M/uL (3.77-5.24); WHITE BLOOD CELL COUNT,WBC 11.0 K/uL (3.2-11.0)
[2024-09-07 13:00] LABS: A/G RATIO 0.8 (1.2-2.2); ALANINE AMINOTRANSFERASE,ALT 58 U/L (12-78); ASPARTATE AMNIOTRANSFERASE,AST 31 U/L (15-37); BILIRUBIN TOTAL 0.6 mg/dL (0.2-1.0); BLOOD UREA NITROGEN,BUN 20 mg/dL (7-18); CARBON DIOXIDE,CO2 29 mmol/L (21-32); CHLORIDE,CL 104 mmol/L (100-108); CREATININE 1.5 mg/dL (0.6-1.0); EST CRCL DRUG DOSING (CG) 28.84 mL/min; ESTIMATED GFR 37 mL/min (>60); GLUCOSE RANDOM 119 mg/dL (74-106); POTASSIUM,K 4.2 mmol/L (3.6-5.2); PROTEIN TOTAL,TP 6.5 g/dL (6.4-8.2); SODIUM,NA 139 mmol/L (140-148)
[2024-09-07 14:31] VITALS: BP 127/76
[2024-09-10 21:22] LABS: ANAPLASMA PHAGOCYTOPHILUM PCR Not Detected; BABESIA MICROTI BY PCR Not Detected; EHRLICHIA CHAFFEENSIS BY PCR Not Detected; EHRLICHIA EWINGII/CANIS BY PCR Not Detected; EHRLICHIA MURIS-LIKE BY PCR Not Detected
== END 2024-09-07 14:30 | disposition home or self-care (01) ==
LOC: JP.ED 11:20
DX: E86.0 Dehydration (principal); I10 Essential (primary) hypertension; E78.00 Pure hypercholesterolemia, unspecified; E66.9 Obesity, unspecified; Z88.8 Allergy status to other drugs, medicaments and biological substances; Z79.899 Other long term (current) drug therapy
CPT/HCPCS: 36415; 80053; 85025; 86140; 86618; 87468; 87469; 87484; 87798; 99284; J7030; 99283

== ENCOUNTER 2024-09-09 11:11 | Emergency (ER) | payer MEDICARE, BC ==
[2024-09-09 11:34] VITALS: BP 126/63; PULSE 90
[2024-09-09 12:43] LABS: BASOPHILS ABSOLUTE AUTO 0.04 K/uL (0.00-0.10); BASOPHILS PERCENT AUTO 0.3 % (0.1-1.3); EOSINOPHILS ABSOLUTE AUTO 0.03 K/uL (0.00-0.40); EOSINOPHILS PERCENT AUTO 0.2 % (0.0-5.4); IMMATURE GRAN ABSOLUTE AUTO 0.43 K/uL (0.00-0.23); IMMATURE GRAN PERCENT AUTO 3.2 % (0.0-0.7); LYMPHOCYTES ABSOLUTE AUTO 0.93 K/uL (0.8-3.3); LYMPHOCYTES PERCENT AUTO 6.9 % (11.4-47.7); MONOCYTES ABSOLUTE AUTO 0.89 K/uL (0.20-0.90); MONOCYTES PERCENT AUTO 6.6 % (3.3-12.6); NEUTROPHILS ABSOLUTE AUTO 11.18 K/uL (1.0-7.6); NEUTROPHILS PERCENT AUTO 82.8 % (40.0-78.1); PLATELET COUNT,PLT 347 K/uL (130-375); RED BLOOD CELL COUNT 4.08 M/uL (3.77-5.24); WHITE BLOOD CELL COUNT,WBC 13.5 K/uL (3.2-11.0)
[2024-09-09 12:44] LABS: APPEARANCE,URINE CLEAR (CLEAR); GLUCOSE,URINE NEGATIVE (NEGATIVE); OCCULT BLOOD,URINE TRACE-INTACT (NEGATIVE)
[2024-09-09 12:51] LABS: EPITHELIAL CELLS,URINE FEW
[2024-09-09 13:03] LABS: A/G RATIO 0.8 (1.2-2.2); ALANINE AMINOTRANSFERASE,ALT 56 U/L (12-78); ASPARTATE AMNIOTRANSFERASE,AST 31 U/L (15-37); BILIRUBIN TOTAL 0.8 mg/dL (0.2-1.0); BLOOD UREA NITROGEN,BUN 18 mg/dL (7-18); CARBON DIOXIDE,CO2 31 mmol/L (21-32); CHLORIDE,CL 102 mmol/L (100-108); CREATININE 1.4 mg/dL (0.6-1.0); EST CRCL DRUG DOSING (CG) 30.90 mL/min; ESTIMATED GFR 40 mL/min (>60); GLUCOSE RANDOM 115 mg/dL (74-106); POTASSIUM,K 3.8 mmol/L (3.6-5.2); PROTEIN TOTAL,TP 6.7 g/dL (6.4-8.2); SODIUM,NA 138 mmol/L (140-148)
== END 2024-09-09 13:38 | disposition home or self-care (01) ==
LOC: JP.ED 11:11
DX: A93.8 Other specified arthropod-borne viral fevers (principal); I10 Essential (primary) hypertension; I48.91 Unspecified atrial fibrillation; E66.9 Obesity, unspecified; E78.00 Pure hypercholesterolemia, unspecified; Z91.048 Other nonmedicinal substance allergy status; Z79.899 Other long term (current) drug therapy; Z79.01 Long term (current) use of anticoagulants; Z90.49 Acquired absence of other specified parts of digestive tract; Z68.36 Body mass index [BMI] 36.0-36.9, adult
CPT/HCPCS: 36415; 80053; 81001; 85025; 86140; 99284

== ENCOUNTER 2024-12-17 17:16 | Emergency (ER) | payer MEDICARE, BC ==
[2024-12-17] MEDS ORDERED: Sodium Chloride 0.9% 10 ML Syringe FLUSH PRN (17:59)
[2024-12-17 18:14] LABS: BASOPHILS ABSOLUTE AUTO 0.02 K/uL (0.00-0.10); BASOPHILS PERCENT AUTO 0.2 % (0.1-1.3); EOSINOPHILS ABSOLUTE AUTO 0.05 K/uL (0.00-0.40); EOSINOPHILS PERCENT AUTO 0.5 % (0.0-5.4); IMMATURE GRAN ABSOLUTE AUTO 0.07 K/uL (0.00-0.23); IMMATURE GRAN PERCENT AUTO 0.7 % (0.0-0.7); LYMPHOCYTES ABSOLUTE AUTO 1.57 K/uL (0.8-3.3); LYMPHOCYTES PERCENT AUTO 15.0 % (11.4-47.7); MONOCYTES ABSOLUTE AUTO 0.81 K/uL (0.20-0.90); MONOCYTES PERCENT AUTO 7.7 % (3.3-12.6); NEUTROPHILS ABSOLUTE AUTO 7.94 K/uL (1.0-7.6); NEUTROPHILS PERCENT AUTO 75.9 % (40.0-78.1); PLATELET COUNT,PLT 405 K/uL (130-375); RED BLOOD CELL COUNT 4.23 M/uL (3.77-5.24); WHITE BLOOD CELL COUNT,WBC 10.5 K/uL (3.2-11.0)
[2024-12-17 18:37] LABS: A/G RATIO 0.7 (1.2-2.2); ALANINE AMINOTRANSFERASE,ALT 16 U/L (12-78); ASPARTATE AMNIOTRANSFERASE,AST 12 U/L (15-37); BILIRUBIN TOTAL 0.8 mg/dL (0.2-1.0); BLOOD UREA NITROGEN,BUN 15 mg/dL (7-18); CARBON DIOXIDE,CO2 28 mmol/L (21-32); CHLORIDE,CL 100 mmol/L (100-108); CREATININE 1.2 mg/dL (0.6-1.0); EST CRCL DRUG DOSING (CG) 36.05 mL/min; ESTIMATED GFR 48 mL/min (>60); GLUCOSE RANDOM 98 mg/dL (74-106); POTASSIUM,K 4.3 mmol/L (3.6-5.2); PROTEIN TOTAL,TP 7.3 g/dL (6.4-8.2); SODIUM,NA 136 mmol/L (140-148); TROPONIN I HIGH SENSITIVITY 4.3 pg/mL (<=60.3)
[2024-12-17 19:29] VITALS: BP 134/81; PULSE 72
== END 2024-12-17 20:48 | disposition home or self-care (01) ==
LOC: JP.ED 17:16
DX: S52.51 Fracture of radial styloid process (principal); Z88.8 Allergy status to other drugs, medicaments and biological substances; Z79.899 Other long term (current) drug therapy; R55 Syncope and collapse
CPT/HCPCS: 36415; 70450; 73090; 73110; 73502; 80053; 84484; 85025; 93005; 93010; 96360; 96361; 99283; 99284; A9270; J7030

== ENCOUNTER 2025-01-06 22:48 | Emergency (ER) | payer MEDICARE, BC ==
[2025-01-06 23:38] LABS: BASOPHILS ABSOLUTE AUTO 0.03 K/uL (0.00-0.10); BASOPHILS PERCENT AUTO 0.3 % (0.1-1.3); EOSINOPHILS ABSOLUTE AUTO 0.09 K/uL (0.00-0.40); EOSINOPHILS PERCENT AUTO 0.9 % (0.0-5.4); IMMATURE GRAN ABSOLUTE AUTO 0.07 K/uL (0.00-0.23); IMMATURE GRAN PERCENT AUTO 0.7 % (0.0-0.7); LYMPHOCYTES ABSOLUTE AUTO 1.75 K/uL (0.8-3.3); LYMPHOCYTES PERCENT AUTO 18.2 % (11.4-47.7); MONOCYTES ABSOLUTE AUTO 0.82 K/uL (0.20-0.90); MONOCYTES PERCENT AUTO 8.5 % (3.3-12.6); NEUTROPHILS ABSOLUTE AUTO 6.88 K/uL (1.0-7.6); NEUTROPHILS PERCENT AUTO 71.4 % (40.0-78.1); PLATELET COUNT,PLT 486 K/uL (130-375); RED BLOOD CELL COUNT 4.31 M/uL (3.77-5.24); WHITE BLOOD CELL COUNT,WBC 9.6 K/uL (3.2-11.0)
[2025-01-06 23:58] LABS: A/G RATIO 0.7 (1.2-2.2); ALANINE AMINOTRANSFERASE,ALT 15 U/L (12-78); ASPARTATE AMNIOTRANSFERASE,AST 14 U/L (15-37); BILIRUBIN TOTAL 0.7 mg/dL (0.2-1.0); BLOOD UREA NITROGEN,BUN 22 mg/dL (7-18); CARBON DIOXIDE,CO2 28 mmol/L (21-32); CHLORIDE,CL 98 mmol/L (100-108); CREATININE 1.2 mg/dL (0.6-1.0); EST CRCL DRUG DOSING (CG) 36.05 mL/min; ESTIMATED GFR 48 mL/min (>60); GLUCOSE RANDOM 126 mg/dL (74-106); POTASSIUM,K 3.9 mmol/L (3.6-5.2); PROTEIN TOTAL,TP 7.2 g/dL (6.4-8.2); SODIUM,NA 136 mmol/L (140-148)
[2025-01-07] MEDS: fentaNYL 50 MCG/ML SDV IVPUSH ONE ×2 (00:10→04:28)
[2025-01-07] MEDS: Iopamidol 612 MG/ML 100 ML Bottle IV SCH (00:47)
[2025-01-07] MEDS: Sodium Chloride 0.9% 10 ML Syringe FLUSH PRN (00:49)
[2025-01-07 02:24] LABS: APPEARANCE,URINE CLEAR (CLEAR); GLUCOSE,URINE NEGATIVE (NEGATIVE); OCCULT BLOOD,URINE TRACE-INTACT (NEGATIVE)
[2025-01-07 02:46] LABS: SQUAMOUS EPITHELIAL CELLS,UR FEW /HPF; UROTHELIAL CELLS,URINE NOT SEEN /HPF
[2025-01-07] MEDS: LORazepam 2 MG/ML SDV IVPUSH ONE (02:55)
[2025-01-07 09:58] VITALS: BP 103/69; PULSE 83
[2025-01-07] MEDS: fentaNYL 50 MCG/ML SDV IV ONE (10:07)
== END 2025-01-07 10:15 | disposition other institution (70) ==
LOC: JP.ED 22:48
DX: N15.1 Renal and perinephric abscess (principal); R10.A2 Flank pain, left side; I48.91 Unspecified atrial fibrillation; I10 Essential (primary) hypertension; E78.00 Pure hypercholesterolemia, unspecified; E66.9 Obesity, unspecified; Z90.49 Acquired absence of other specified parts of digestive tract; Z88.8 Allergy status to other drugs, medicaments and biological substances; Z91.048 Other nonmedicinal substance allergy status; Z79.01 Long term (current) use of anticoagulants; Z79.899 Other long term (current) drug therapy
CPT/HCPCS: 36415; 71260; 74177; 80053; 81001; 85025; 96361; 96374; 96375; 96376; 99285; J2060; J3010; J7030; Q9967